=== PATIENT | female | born 1970 | race Hispanic/Latino ===

== ENCOUNTER 2017-09-17 21:21 | Emergency (ER) | payer OTHER ==
[~2017-09-17] VITALS: Ht 152.4 cm; Wt 56.7 kg
[~2017-09-17 21:21] MED LIST: CYMBALTA30 MG PO; IBUPROFEN600 MG PO; IBUPROFEN800 MG PO; LEVAQUIN750 MG PO; LIDOCAINE30 G TOP; MEDROL4 M1 PO; POLYTRIM EYE DR10 ML OD; ROBAXIN500 MG PO
--- NOTE | 2017-09-18 17:37 | EKG ---
[facility] [address] [facility] [place] [address] Signed Sinus tachycardia Possible Left atrial enlargement Borderline ECG No previous ECGs available Confirmed by EUGENIA LOBATO MD ([id number] on 09/18/2017 5:37:15 PM Electronically Signed By: EUGENIA LOBATO MD 09/18/17 1737 PATIENT NAME: MONTSE MARSH Electrocardiogram DATE OF : 74 PHYSICIAN: EUGENIA LOBATO MD REPORT #: [id number] REPORT IS CONFIDENTIAL AND NOT TO BE RELEASED WITHOUT AUTHORIZATION
== END 2017-09-17 23:24 | disposition home or self-care (01) ==
LOC: ED 21:21
DX: J06.9 Acute upper respiratory infection, unspecified (principal)
CPT/HCPCS: 71046; 93005; 93010; 99284

== ENCOUNTER 2019-08-16 14:13 | Emergency (ER) | payer OTHER ==
[~2019-08-16] VITALS: Ht 152.4 cm; Wt 56.7 kg
== END 2019-08-16 18:00 | disposition home or self-care (01) ==
LOC: ED 14:13
DX: S46.912A Strain of unspecified muscle, fascia and tendon at shoulder and upper arm level, left arm, initial encounter (principal); X50.0XXA Overexertion from strenuous movement or load, initial encounter
CPT/HCPCS: 73030; 96372; 99283-25; J1885

== ENCOUNTER 2021-04-25 00:44 | Emergency (ER) | payer OTHER ==
[~2021-04-25] VITALS: Ht 152.4 cm; Wt 56.7 kg
[2021-04-25] MEDS ORDERED: ULTRAM50 MG PO (01:42)
[2021-04-25] MEDS ORDERED: CEPHALEXIN500 MG PO (01:42)
== END 2021-04-25 02:42 | disposition home or self-care (01) ==
LOC: ED 00:44
DX: N39.0 Urinary tract infection, site not specified (principal)
CPT/HCPCS: 80053; 81001; 84703; 85025; 96374; 96375; 99284-25; J0696; J1885

== ENCOUNTER 2021-12-15 17:47 | Emergency (ER) | payer OTHER ==
[~2021-12-15] VITALS: Ht 152.4 cm; Wt 56.7 kg
[~2021-12-15 17:47] MED LIST changes: +CEPHALEXIN500 MG PO; +ULTRAM50 MG PO
== END 2021-12-15 20:05 | disposition home or self-care (01) ==
LOC: ED 17:47
DX: J98.8 Other specified respiratory disorders (principal); B97.89 Other viral agents as the cause of diseases classified elsewhere; Z20.822 Contact with and (suspected) exposure to COVID-19
CPT/HCPCS: 87502; 99283; C9803; U0003